=== PATIENT | female | born 1935 | race Caucasian/White ===

== ENCOUNTER 2017-05-08 10:57 | Inpatient (IN) | payer MEDICARE ==
[2017-05-08] MEDS ORDERED: Sodium Chloride 0.9% 10 ML Syringe FLUSH PRN (11:15)
--- NOTE | 2017-05-08 11:53 | EDM.PDOC ---
ED HPI GENERAL MEDICAL PROBLEM - General Chief Complaint: Respiratory Problem Stated Complaint: SOB/LIGHT HEADED Time Seen by Provider: 05/08/17 11:20 Source of Information: Reports: Patient, Family History Limitations: Reports: No Limitations - History of Present Illness INITIAL COMMENTS - FREE TEXT/NARRATIVE: Maisha presents today with complaints of weakness, dizziness and black/tar like stools. She reports change in stools for a few days. She denies nausea, vomiting, fever or chills. - Related Data Allergies Allergy/AdvReac Type Severity Reaction Status Date / Time No Known Allergies Allergy Verified 05/08/17 11:14 Home Meds: Home Meds Acetaminophen with Codeine [Tylenol with Codeine #3 Tablet] 1 each PO BID PRN [History] Aspirin 81 mg PO DAILY 05/08/17 [History] Fenofibrate Nanocrystallized [Fenofibrate] 145 mg PO DAILY 05/08/17 [History] Hydrochlorothiazide [Hydrochlorothiazide] 25 mg PO DAILY 05/08/17 [History] Lisinopril [Lisinopril] 10 mg PO DAILY 05/08/17 [History] Venlafaxine HCl [Venlafaxine ER] 37.5 mg PO DAILY 05/08/17 [History] Past Medical History HEENT History: Reports: Cataract Cardiovascular History: Reports: Hypertension Respiratory History: Reports: COPD Gastrointestinal History: Reports: GERD, GI Bleed, Other (See Below) Other Gastrointestinal History: ulcer 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, Musculoskeletal History: Reports: Arthritis, Osteoarthritis Psychiatric History: Reports: Anxiety, Depression Hematologic History: Reports: Anemia, Blood Transfusion(s), Idiopathic Thrombocytopenia - Past Surgical History HEENT Surgical History: Reports: Cataract Surgery GI Surgical History: Reports: Colonoscopy, EGD Female Surgical History: Reports: Oophorectomy Musculoskeletal Surgical History: Reports: Arthroscopic Knee Social & Family History - Tobacco Use Smoking Status *Q: Current Every Day Smoker Years of Tobacco use: 60 Packs/Tins Daily: 1 - Caffeine Use Caffeine Use: Reports: Coffee - Recreational Drug Use Recreational Drug Use: No ED ROS GENERAL - Review of Systems Review Of Systems: See Below Constitutional: Reports: Weakness. Denies: Fever, Chills, Malaise HEENT: Reports: No Symptoms Respiratory: Reports: Shortness of Breath, Cough. Denies: Wheezing, Pleuritic Chest Pain, Sputum, Hemoptysis Cardiovascular: Reports: Dyspnea on Exertion, Lightheadedness. Denies: Chest Pain, Blood Pressure Problem, Edema, Palpitations, PND, Syncope Endocrine: Reports: No Symptoms GI/Abdominal: Reports: Black Stool. Denies: Abdominal Pain, Diarrhea, Nausea, Vomiting : Denies: Flank Pain, Frequency, Hematuria, Pain, Urgency Musculoskeletal: Reports: No Symptoms Skin: Reports: No Symptoms Neurological: Reports: No Symptoms Psychiatric: Reports: No Symptoms Hematologic/Lymphatic: Reports: No Symptoms Immunologic: Reports: No Symptoms ED EXAM, GENERAL - Physical Exam Exam: See Below Free Text/Narrative:: Maisha is an alert, oriented and pleasant 81 year old female. She presents with complaints of weakness and black stools. She does state that she takes iron but her stools have been black for a few days and now she is weak and short of breath at times. She does use 1ppd cigarettes. Exam Limited By: No Limitations General Appearance: Alert, WD/WN, Mild Distress Eye Exam: Bilateral Eye: EOMI, Normal Inspection, PERRL Ears: Normal External Exam, Normal Canal, Hearing Grossly Normal, Normal TMs Ear Exam: Bilateral Ear: Auricle Normal, Canal Normal, TM normal Nose: Normal Inspection, Normal Mucosa, No Blood Throat/Mouth: Normal Inspection, Normal Lips, Normal Oropharynx, Normal Voice, No Airway Compromise Head: Atraumatic, Normocephalic Neck: Normal Inspection, Supple, Non-Tender, Full Range of Motion Respiratory/Chest: No Respiratory Distress, Chest Non-Tender, Decreased Breath Sounds, Rhonchi. No: Respiratory Distress, Wheezing Cardiovascular: Normal Peripheral Pulses, Regular Rate, Rhythm, No Edema, No Murmur Peripheral Pulses: 2+: Radial (L), Radial (R), Dorsalis Pedis (L), Dorsalis Pedis (R) GI/Abdominal: Normal Bowel Sounds, Soft, Non-Tender, No Distention, No Mass, Rigid, Rebound Rectal (Female) Exam: Normal Exam, Normal Rectal Tone, Black Stool, Heme + Stool Back Exam: Normal Inspection, Full Range of Motion. No: CVA Tenderness (R), CVA Tenderness (L) Extremities: Normal Inspection, Normal Range of Motion, Non-Tender, No Pedal Edema, Normal Capillary Refill Neurological: Alert, Oriented, CN II-XII Intact, Normal Cognition, No Motor/ Sensory Deficits Psychiatric: Normal Affect, Normal Mood Skin Exam: Warm, Dry, Intact, Normal Color, No Rash Lymphatic: No Adenopathy EKG INTERPRETATION EKG Date: 05/08/17 Time: 11:54 Rhythm: NSR [place]: Normal P-Wave: Present QRS: Normal ST-T: Normal QT: Normal Course - Vital Signs Last Recorded V/S: Last Vital Signs Temp 36.7 C 05/08/17 14:05 Pulse 68 05/08/17 14:05 Resp 17 05/08/17 14:05 BP 111/49 L 05/08/17 14:05 Pulse Ox 93 L 05/08/17 14:05 - Orders/Labs/Meds Orders: Active Orders 24 hr Category Date Time Status Chest 2V [CR] Stat Exams 05/08/17 11:14 Taken PATIENT RETYPE [BBK] Stat Lab 05/08/17 12:01 Results RED BLOOD CELLS LP [BBK] Stat Lab 05/08/17 12:01 Results TYPE AND SCREEN [BBK] Stat Lab 05/08/17 12:01 Results Sodium Chloride 0.9% [Saline Flush] Med 05/08/17 11:15 Active 10 ml FLUSH ASDIRECTED PRN Saline Lock Insert [OM.PC] Routine Oth 05/08/17 11:15 Ordered EKG 12 Lead [EK] Routine Ther 05/08/17 11:14 Stop Req Medication Orders Acetaminophen (Tylenol) 650 mg PO Q4H PRN PRN Reason: Pain (Mild 1-3)/fever Acetaminophen/Codeine Phosphate (Tylenol With Codeine No.3 300mg/30mg) 1 tab PO Q4H PRN PRN Reason: Pain Sodium Chloride (Normal Saline) 1,000 mls @ 125 mls/hr IV ASDIRECTED GORAN Morphine Sulfate (Morphine) 2 mg IVPUSH Q2H PRN PRN Reason: Pain (severe 7-10) Ondansetron HCl (Zofran Odt) 4 mg PO Q6H PRN PRN Reason: Nausea able to take PO Pantoprazole Sodium (Protonix Iv) 40 mg IV Q12H GORAN Sodium Chloride (Saline Flush) 10 ml FLUSH ASDIRECTED PRN PRN Reason: Keep Vein Open Last Admin: 05/08/17 11:43 Dose: 10 ml Venlafaxine HCl (Effexor Xr) 37.5 mg PO DAILY GORAN Labs: Laboratory Tests 05/08/17 05/08/17 05/08/17 Range/Units 11:25 11:25 11:25 WBC 8.2 (4.5-11.0) K/uL RBC 2.73 L (3.30-5.50) M/uL Hgb 8.4 L (12.0-15.0) g/dL Hct 25.6 L (36.0-48.0) % MCV 94 (80-98) fL MCH 31 (27-31) pg MCHC 33 (32-36) % Plt Count 294 (150-400) K/uL Neut % (Auto) 80 H (36-66) % Lymph % (Auto) 12 L (24-44) % [place] % (Auto) 8 H (2-6) % Eos % (Auto) 0 L (2-4) % Baso % (Auto) 0 (0-1) % PT 10.6 (9.5-12.0) sec INR 0.99 (0.80-1.20) APTT 22.6 L (27.0-36.0) sec Sodium 133 L (140-148) mmol/L Potassium 4.0 (3.6-5.2) mmol/L Chloride 100 (100-108) mmol/L Carbon Dioxide 24 (21-32) mmol/L Anion Gap 13.0 (5.0-14.0) mmol/L BUN 39 H (7-18) mg/dL Creatinine 1.6 H (0.6-1.0) mg/dL Est Cr Clr Drug Dosing 23.09 mL/min Estimated GFR (MDRD) 31 L (>60) Glucose 104 (74-106) mg/dL Calcium 10.1 (8.5-10.1) mg/dL Total Bilirubin 0.3 (0.2-1.0) mg/dL AST 25 (15-37) U/L ALT 23 (12-78) U/L Alkaline Phosphatase 59 (46-116) U/L Total Protein 6.5 (6.4-8.2) g/dL Albumin 3.5 (3.4-5.0) g/dL Globulin 3.0 (2.3-3.5) g/dL Albumin/Globulin Ratio 1.2 (1.2-2.2) Blood Type Gel Antibody Screen Crossmatch 05/08/17 Range/Units 12:01 WBC (4.5-11.0) K/uL RBC (3.30-5.50) M/uL Hgb (12.0-15.0) g/dL Hct (36.0-48.0) % MCV (80-98) fL MCH (27-31) pg MCHC (32-36) % Plt Count (150-400) K/uL Neut % (Auto) (36-66) % Lymph % (Auto) (24-44) % [place] % (Auto) (2-6) % Eos % (Auto) (2-4) % Baso % (Auto) (0-1) % PT (9.5-12.0) sec INR (0.80-1.20) APTT (27.0-36.0) sec Sodium (140-148) mmol/L Potassium (3.6-5.2) mmol/L Chloride (100-108) mmol/L Carbon Dioxide (21-32) mmol/L Anion Gap (5.0-14.0) mmol/L BUN (7-18) mg/dL Creatinine (0.6-1.0) mg/dL Est Cr Clr Drug Dosing mL/min Estimated GFR (MDRD) (>60) Glucose (74-106) mg/dL Calcium (8.5-10.1) mg/dL Total Bilirubin (0.2-1.0) mg/dL AST (15-37) U/L ALT (12-78) U/L Alkaline Phosphatase (46-116) U/L Total Protein (6.4-8.2) g/dL Albumin (3.4-5.0) g/dL Globulin (2.3-3.5) g/dL Albumin/Globulin Ratio (1.2-2.2) Blood Type B POSITIVE Gel Antibody Screen Negative Crossmatch See Detail Lab work reviewed, Occult stool positive. 2nd IV inserted, fluid bolus administered. Meds: Medications Generic Name Dose Route Start Last Admin Trade Name Freq PRN Reason Stop Dose Admin Acetaminophen 650 mg 05/08/17 14:05 Tylenol PO Q4H PRN Pain (Mild 1-3)/fever Acetaminophen/Codeine Phosphate 1 tab 05/08/17 14:05 Tylenol With Codeine No.3 300mg/30mg PO Q4H PRN Pain Sodium Chloride 1,000 mls @ 125 mls/hr 05/08/17 14:05 Normal Saline IV ASDIRECTED GORAN Morphine Sulfate 2 mg 05/08/17 14:05 Morphine IVPUSH Q2H PRN Pain (severe 7-10) Ondansetron HCl 4 mg 05/08/17 14:05 Zofran Odt PO Q6H PRN Nausea able to take PO Pantoprazole Sodium 40 mg 05/08/17 23:59 Protonix Iv IV Q12H GORAN Sodium Chloride 10 ml 05/08/17 11:15 05/08/17 11:43 Saline Flush FLUSH 10 ml ASDIRECTED PRN Administration Keep Vein Open Venlafaxine HCl 37.5 mg 05/09/17 09:00 Effexor Xr PO DAILY GORAN Discontinued Medications Generic Name Dose Route Start Last Admin Trade Name Freq PRN Reason Stop Dose Admin Sodium Chloride 1,000 mls @ 500 mls/hr 05/08/17 12:00 05/08/17 12:01 Normal Saline IV 500 mls/hr ASDIRECTED GORAN Administration Pantoprazole Sodium 40 mg 05/08/17 12:00 05/08/17 12:12 Protonix Iv IVPUSH 05/08/17 12:01 40 mg ONETIME ONE Administration - Radiology Interpretation Free Text/Narrative:: Chest x-ray wet read, no acute findings noted. Radiologist read pending. - Re-Assessments/Exams Free Text/Narrative Re-Assessment/Exam: 05/08/17 11:55 Patient case discussed with Dr. Christiansen, he will be down to the ER to admit Maisha. Type and screen Cross match 2 Units Maisha and her family in agreement with plan. Departure - Departure Time of Disposition: 15:50 Disposition: Admitted As Inpatient 67 Condition: Fair Clinical Impression: GI bleed, Iron deficiency anemia secondary to blood loss (chronic) - Discharge Information - My Orders Last 24 Hours: My Active Orders 05/08/17 11:14 Chest 2V [CR] Stat EKG 12 Lead [EK] Routine 05/08/17 11:15 Sodium Chloride 0.9% [Saline Flush] 10 ml FLUSH ASDIRECTED PRN Saline Lock Insert [OM.PC] Routine 05/08/17 12:01 PATIENT RETYPE [BBK] Stat RED BLOOD CELLS LP [BBK] Stat TYPE AND SCREEN [BBK] Stat - Assessment/Plan Last 24 Hours: My Active Orders 05/08/17 11:14 Chest 2V [CR] Stat EKG 12 Lead [EK] Routine 05/08/17 11:15 Sodium Chloride 0.9% [Saline Flush] 10 ml FLUSH ASDIRECTED PRN Saline Lock Insert [OM.PC] Routine 05/08/17 12:01 PATIENT RETYPE [BBK] Stat RED BLOOD CELLS LP [BBK] Stat TYPE AND SCREEN [BBK] Stat
[2017-05-08] MEDS ORDERED: Pantoprazole 40 MG Vial IVPUSH ONE (12:00)
[2017-05-08] MEDS ORDERED: Sodium Chloride 0.9% 1,000 ML IV SCH (12:00)
--- NOTE | 2017-05-08 13:49 | PCM.HP ---
H&P History of Present Illness - General Date of Service: 05/08/17 Admit Problem/Dx: Admission Diagnosis/Problem Admission Diagnosis/Problem Gastrointestinal hemorrhage Source of Information: Patient, Family, Provider History Limitations: Reports: No Limitations - History of Present Illness Initial Comments - Free Text/Narative: Maisha presents to the emergency room today with weakness, fatigue, lightheadedness and shortness of breath. She has been feeling fatigued for the past few days and has not had as much energy as usual. She felt weak yesterday but otherwise felt okay. She has noticed that her stools have been darker than usual for the past 2 or 3 days. She does not report any heartburn or epigastric discomfort. She has not had much of an appetite. Today she suddenly became lightheaded and very weak. She had several different episodes where she felt very short of breath, even at rest. She does not report any abdominal pain. She has not had any chest pain. No fevers are reported. Workup in the emergency room revealed a hemoglobin of 8.4 with a baseline of around 12. Hemoccult was positive. She will be admitted for management of presumed upper gastrointestinal hemorrhage. - Related Data Allergies/Adverse Reactions: Allergies Allergy/AdvReac Type Severity Reaction Status Date / Time No Known Allergies Allergy Verified 05/08/17 11:14 Home Medications: Home Meds Acetaminophen with Codeine [Tylenol with Codeine #3 Tablet] 1 each PO BID PRN [History] Aspirin 81 mg PO DAILY 05/08/17 [History] Fenofibrate Nanocrystallized [Fenofibrate] 145 mg PO DAILY 05/08/17 [History] Hydrochlorothiazide [Hydrochlorothiazide] 25 mg PO DAILY 05/08/17 [History] Lisinopril [Lisinopril] 10 mg PO DAILY 05/08/17 [History] Venlafaxine HCl [Venlafaxine ER] 37.5 mg PO DAILY 05/08/17 [History] Past Medical History HEENT History: Reports: Cataract Cardiovascular History: Reports: Hypertension Respiratory History: Reports: COPD Gastrointestinal History: Reports: GERD, GI Bleed, Other (See Below) Other Gastrointestinal History: ulcer 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, Musculoskeletal History: Reports: Arthritis, Osteoarthritis Psychiatric History: Reports: Anxiety, Depression Hematologic History: Reports: Anemia, Blood Transfusion(s), Idiopathic Thrombocytopenia - Past Surgical History HEENT Surgical History: Reports: Cataract Surgery GI Surgical History: Reports: Colonoscopy, EGD Female Surgical History: Reports: Oophorectomy Musculoskeletal Surgical History: Reports: Arthroscopic Knee Social & Family History - Family History GI: Denies: GI bleed - Tobacco Use Smoking Status *Q: Current Every Day Smoker Years of Tobacco use: 60 Packs/Tins Daily: 1 - Caffeine Use Caffeine Use: Reports: Coffee - Alcohol Use Alcohol Use History: No - Recreational Drug Use Recreational Drug Use: No H&P Review of Systems - Review of Systems: Review Of Systems: See Below Free Text/Narrative: A complete 12 point review of systems was obtained. Pertinent positives and negatives are noted in the history of present illness. All other systems were reviewed and were negative except as noted. Exam - Exam Exam: See Below - Vital Signs Vital Signs: Last Vital Signs Temp 37 C 05/08/17 11:04 Pulse 68 05/08/17 13:00 Resp 14 05/08/17 12:00 BP 103/55 L 05/08/17 13:00 Pulse Ox 95 05/08/17 13:00 Weight: 52.163 kg - Exam Quality Assessment: No: Supplemental Oxygen General: Alert, Oriented, Cooperative. No: Mild Distress HEENT: Conjunctiva Clear. No: Mucosa Moist & [place] (dry), Scleral Icterus Neck: Supple, Trachea Midline. No: Lymphadenopathy Lungs: Clear to Auscultation, Normal Respiratory Effort Cardiovascular: Regular Rate, Regular Rhythm. No: Systolic Murmur GI/Abdominal Exam: Normal Bowel Sounds, Soft, No Distention, Tender (mild suprapubic tenderness over full bladder) Extremities: No Pedal Edema. No: Increased Warmth Peripheral Pulses: 2+: Dorsalis Pedis (L), Dorsalis Pedis (R) Skin: Warm, Dry Neuro Extensive - Mental Status: Alert, Oriented x3, Nl Response to Commands Neuro Extensive - Motor, Sensory, Reflexes: CN II-XII Intact. No: Abnormal Reflexes, Abnormal Motor, Tremor Psychiatric: Alert, Normal Affect - Patient Data Lab Results Last 24 hrs: Laboratory Results - last 24 hr 05/08/17 05/08/17 05/08/17 Range/Units 11:25 11:25 11:25 WBC 8.2 (4.5-11.0) K/uL RBC 2.73 L (3.30-5.50) M/uL Hgb 8.4 L (12.0-15.0) g/dL Hct 25.6 L (36.0-48.0) % MCV 94 (80-98) fL MCH 31 (27-31) pg MCHC 33 (32-36) % Plt Count 294 (150-400) K/uL Neut % (Auto) 80 H (36-66) % Lymph % (Auto) 12 L (24-44) % [place] % (Auto) 8 H (2-6) % Eos % (Auto) 0 L (2-4) % Baso % (Auto) 0 (0-1) % PT 10.6 (9.5-12.0) sec INR 0.99 (0.80-1.20) APTT 22.6 L (27.0-36.0) sec Sodium 133 L (140-148) mmol/L Potassium 4.0 (3.6-5.2) mmol/L Chloride 100 (100-108) mmol/L Carbon Dioxide 24 (21-32) mmol/L Anion Gap 13.0 (5.0-14.0) mmol/L BUN 39 H (7-18) mg/dL Creatinine 1.6 H (0.6-1.0) mg/dL Est Cr Clr Drug Dosing 23.09 mL/min Estimated GFR (MDRD) 31 L (>60) Glucose 104 (74-106) mg/dL Calcium 10.1 (8.5-10.1) mg/dL Total Bilirubin 0.3 (0.2-1.0) mg/dL AST 25 (15-37) U/L ALT 23 (12-78) U/L Alkaline Phosphatase 59 (46-116) U/L Total Protein 6.5 (6.4-8.2) g/dL Albumin 3.5 (3.4-5.0) g/dL Globulin 3.0 (2.3-3.5) g/dL Albumin/Globulin Ratio 1.2 (1.2-2.2) Blood Type Gel Antibody Screen Crossmatch 05/08/17 Range/Units 12:01 WBC (4.5-11.0) K/uL RBC (3.30-5.50) M/uL Hgb (12.0-15.0) g/dL Hct (36.0-48.0) % MCV (80-98) fL MCH (27-31) pg MCHC (32-36) % Plt Count (150-400) K/uL Neut % (Auto) (36-66) % Lymph % (Auto) (24-44) % [place] % (Auto) (2-6) % Eos % (Auto) (2-4) % Baso % (Auto) (0-1) % PT (9.5-12.0) sec INR (0.80-1.20) APTT (27.0-36.0) sec Sodium (140-148) mmol/L Potassium (3.6-5.2) mmol/L Chloride (100-108) mmol/L Carbon Dioxide (21-32) mmol/L Anion Gap (5.0-14.0) mmol/L BUN (7-18) mg/dL Creatinine (0.6-1.0) mg/dL Est Cr Clr Drug Dosing mL/min Estimated GFR (MDRD) (>60) Glucose (74-106) mg/dL Calcium (8.5-10.1) mg/dL Total Bilirubin (0.2-1.0) mg/dL AST (15-37) U/L ALT (12-78) U/L Alkaline Phosphatase (46-116) U/L Total Protein (6.4-8.2) g/dL Albumin (3.4-5.0) g/dL Globulin (2.3-3.5) g/dL Albumin/Globulin Ratio (1.2-2.2) Blood Type B POSITIVE Gel Antibody Screen Negative Crossmatch See Detail Result Diagrams: 05/08/17 11:25 05/08/17 11:25 [place] Results Last 24 hrs: Microbiology 05/08/17 11:25 Stool Occult Blood (BRANDON) - Final Stool / Feces Imaging Impressions Last 24 hrs: CXR - images personally reviewed - there is hyperinflation but no evidence for mass, infiltrate, effusion or congestive heart failure. EKG INTERPRETATION EKG Date: 05/08/17 Rhythm: NSR Rate (Beats/Min): 72 [place]: Normal P-Wave: Present QRS: Normal ST-T: Normal QT: Normal EKG Interpretation Comments: Image personally reviewed *Q Meaningful Use (ADM) - VTE *Q VTE Criteria *Q: VTE Pharmacological Contraindications *Q: Active Hemorrhage - VTE Risk Assess *Q Each Risk Factor Represents 1 Point: Abnormal Pulmonary Function (COPD) Total Score 1 Point Risk Factors: 1 Each Risk Factor Represents 2 Points: None Total Score 2 Point Risk Factors: 0 Each Risk Factor Represents 3 Points: Age 75 Years or Greater Total Score 3 Point Risk Factors: 3 Each Risk Factor Represents 5 Points: None Total Score 5 Point Risk Factors: 0 Venous Thromboembolism Risk Factor Score *Q: 4 - Stroke *Q Stroke Criteria *Q: - AMI *Q AMI Criteria *Q: - Problem List (1) Acute upper gastrointestinal hemorrhage SNOMED Code(s): 65135644 ICD Code: K92.2 - GASTROINTESTINAL HEMORRHAGE, UNSPECIFIED Status: Acute Current Visit: Yes (2) Acute blood loss anemia SNOMED Code(s): 226668091 ICD Code: D62 - ACUTE POSTHEMORRHAGIC ANEMIA Status: Acute Current Visit : Yes (3) Tobacco dependence SNOMED Code(s): 02822280 ICD Code: F17.200 - NICOTINE DEPENDENCE, UNSPECIFIED, UNCOMPLICATED Status : Acute Current Visit: Yes Problem List Initiated/Reviewed/Updated: Yes Orders Last 24hrs: Active Orders 24 hr Category Date Time Status Patient Status Manage Transfer [TRANSFER] Routine ADT 05/08/17 13:33 Ordered EKG Documentation Completion [RC] ASDIRECTED Care 05/08/17 11:14 Active Chest 2V [CR] Stat Exams 05/08/17 11:14 Taken PATIENT RETYPE [BBK] Stat Lab 05/08/17 12:01 Results RED BLOOD CELLS LP [BBK] Stat Lab 05/08/17 12:01 Results TYPE AND SCREEN [BBK] Stat Lab 05/08/17 12:01 Results Sodium Chloride 0.9% [Normal Saline] 1,000 ml Med 05/08/17 12:00 Active IV ASDIRECTED Sodium Chloride 0.9% [Saline Flush] Med 05/08/17 11:15 Active 10 ml FLUSH ASDIRECTED PRN Saline Lock Insert [OM.PC] Routine Oth 05/08/17 11:15 Ordered Resuscitation Status Routine Resus Stat 05/08/17 13:34 Ordered EKG 12 Lead [EK] Routine Ther 05/08/17 11:14 Ordered Medication Orders Sodium Chloride (Normal Saline) 1,000 mls @ 500 mls/hr IV ASDIRECTED GORAN Last Admin: 05/08/17 12:01 Dose: 500 mls/hr Sodium Chloride (Saline Flush) 10 ml FLUSH ASDIRECTED PRN PRN Reason: Keep Vein Open Last Admin: 05/08/17 11:43 Dose: 10 ml Assessment/Plan Comment:: ASSESSMENT AND PLAN - Acute upper gastrointestinal hemorrhage with acute blood loss anemia - history of what no ulceration and hemorrhage requiring blood transfusion. With recent melena upper GI source is suspected. She has lost a significant quantity of blood and is symptomatic with her anemia. She is feeling better with some hydration and she has received an IV dose of pantoprazole. -Admit to the intensive care unit -Pantoprazole every 12 hours -IV fluids -Repeat hemoglobin at 1700, transfuse if less than 8 or if she is hypotensive -She has been typed and crossed for 2 units -EGD in the morning with Dr. Mcnair Essential hypertension - blood pressure on the low side and usual medications will be held. Tobacco dependence - she is a one pack per day smoker. We did discuss the potential role for nicotine in the formation of her ulcers. -Encourage cessation Maintenance issues - - DVT prophylaxis - mechanical - GI prophylaxis - PPI - Nutrition - clear liquids today, nothing by mouth after midnight - Franco catheter - not indicated CODE STATUS - DNR/DNI Admission justification - This patient will be admitted for inpatient services and is medically appropriate meeting medical necessity for inpatient admission as outlined in my documentation. I reasonably expect the patient will require inpatient services that span a period time over 2 midnights. I reasonably expect this patient to be discharged or transferred within 96 hours [facility]. Disposition - anticipate discharge home after the hospital stay Primary care physician - Dr Laura Stout-Lyndsay Christiansen M.D.
[2017-05-08] MEDS ORDERED: Acetaminophen/Codeine 300-30 MG Tab PO PRN (14:05)
[2017-05-08] MEDS ORDERED: Ondansetron 4 MG Tab.DIS PO PRN (14:05)
[2017-05-08] MEDS ORDERED: Morphine 2 MG/ML Syringe IVPUSH PRN (14:05)
[2017-05-08] MEDS ORDERED: Acetaminophen 325 MG Tab PO PRN (14:05)
[2017-05-09] MEDS: Pantoprazole 40 MG Vial IV SCH ×2 (00:03→11:30)
[2017-05-09] MEDS: Sodium Chloride 0.9% 1,000 ML IV SCH ×2 (01:02→08:35)
[2017-05-09] MEDS: Venlafaxine 37.5 MG Cap.ER PO SCH (09:55)
[2017-05-09] MEDS ORDERED: Sodium Chloride 0.9% 1,000 ML IV SCH (11:45)
--- NOTE | 2017-05-09 14:49 | PCM.PN ---
- General Info Date of Service: 05/09/17 Functional Status: Reports: Pain Controlled - Review of Systems General: Reports: Weakness Pulmonary: Denies: Shortness of Breath Gastrointestinal: Reports: Melena Systems Review Comment:: No acute events overnight. Blood pressure has been on the low side of normal but stable. Tolerated blood transfusion well yesterday after hemoglobin dropped below 7. She has had a small quantity of melena this morning but none yesterday. No complaints of epigastric pain or nausea. No recurrence of the episodes of shortness of breath she was experiencing yesterday. - Patient Data Vitals - Most Recent: Last Vital Signs Temp 36.4 C 05/09/17 09:59 Pulse 69 05/09/17 13:51 Resp 24 H 05/09/17 13:51 BP 157/33 H 05/09/17 13:51 Pulse Ox 94 L 05/09/17 13:51 Weight - Most Recent: 52.163 kg I&O - Last 24 Hours: Intake & Output 05/08/17 05/09/17 05/09/17 22:59 06:59 14:59 Intake Total 1270 1188 810 Output Total 1600 1100 1000 Balance -330 88 -190 Lab Results Last 24 Hours: Laboratory Results - last 24 hr 05/08/17 05/09/17 05/09/17 Range/Units 16:58 05:11 05:11 WBC 4.2 L (4.5-11.0) K/uL RBC 3.29 L (3.30-5.50) M/uL Hgb 6.9 L* 9.9 L D (12.0-15.0) g/dL Hct 30.0 L (36.0-48.0) % MCV 91 (80-98) fL MCH 30 (27-31) pg MCHC 33 (32-36) % Plt Count 227 (150-400) K/uL Sodium 141 (140-148) mmol/L Potassium 3.8 (3.6-5.2) mmol/L Chloride 112 H (100-108) mmol/L Carbon Dioxide 25 (21-32) mmol/L Anion Gap 7.8 (5.0-14.0) mmol/L BUN 20 H (7-18) mg/dL Creatinine 1.0 (0.6-1.0) mg/dL Est Cr Clr Drug Dosing 36.95 mL/min Estimated GFR (MDRD) 53 L (>60) Glucose 90 (74-106) mg/dL Calcium 9.3 (8.5-10.1) mg/dL Med Orders - Current: Current Medications Acetaminophen (Tylenol) 650 mg PO Q4H PRN PRN Reason: Pain (Mild 1-3)/fever Acetaminophen/Codeine Phosphate (Tylenol With Codeine No.3 300mg/30mg) 1 tab PO Q4H PRN PRN Reason: Pain Morphine Sulfate (Morphine) 2 mg IVPUSH Q2H PRN PRN Reason: Pain (severe 7-10) Ondansetron HCl (Zofran Odt) 4 mg PO Q6H PRN PRN Reason: Nausea able to take PO Sodium Chloride (Saline Flush) 10 ml FLUSH ASDIRECTED PRN PRN Reason: Keep Vein Open Last Admin: 05/08/17 11:43 Dose: 10 ml Venlafaxine HCl (Effexor Xr) 37.5 mg PO DAILY [facility] Last Admin: 05/09/17 09:55 Dose: 37.5 mg Discontinued Medications Sodium Chloride (Normal Saline) 1,000 mls @ 500 mls/hr IV ASDIRECTED [facility] Last Admin: 05/08/17 12:01 Dose: 500 mls/hr Sodium Chloride (Normal Saline) 1,000 mls @ 125 mls/hr IV ASDIRECTED [facility] Last Admin: 05/09/17 08:35 Dose: 125 mls/hr Sodium Chloride (Normal Saline) 1,000 mls @ 50 mls/hr IV ASDIRECTED [facility] Pantoprazole Sodium (Protonix Iv) 40 mg IVPUSH ONETIME ONE Stop: 05/08/17 12:01 Last Admin: 05/08/17 12:12 Dose: 40 mg Pantoprazole Sodium (Protonix Iv) 40 mg IV Q12H [facility] Last Admin: 05/09/17 11:30 Dose: 40 mg - Exam Quality Assessment: No: Supplemental Oxygen General: Alert, Oriented, Cooperative, No Acute Distress Neck: Supple Lungs: Normal Respiratory Effort Cardiovascular: Regular Rate, Regular Rhythm GI/Abdominal Exam: Soft, No Distention Extremities: No Pedal Edema Psy/Mental Status: Alert, Normal Affect - Problem List & Annotations (1) Acute upper gastrointestinal hemorrhage SNOMED Code(s): 69473573 Code(s): K92.2 - GASTROINTESTINAL HEMORRHAGE, UNSPECIFIED Status: Acute Current Visit: Yes (2) Acute blood loss anemia SNOMED Code(s): 387817721 Code(s): D62 - ACUTE POSTHEMORRHAGIC ANEMIA Status: Acute Current Visit: Yes (3) Tobacco dependence SNOMED Code(s): 88627897 Code(s): F17.200 - NICOTINE DEPENDENCE, UNSPECIFIED, UNCOMPLICATED Status: Acute Current Visit: Yes - Problem List Review Problem List Initiated/Reviewed/Updated: Yes - My Orders Last 24 Hours: My Active Orders 05/08/17 14:05 Patient Status [ADT] Routine Cardiac Monitoring [RC] Q6H Intake and Output [RC] QSHIFT Notify Provider Consults [RC] ASDIRECTED Notify Provider Vital Signs [RC] ASDIRECTED Pulse Oximetry [RC] CONTINUOUS VTE/DVT Education [RC] Per Unit Routine Vital Signs [RC] Q2HR Consult to Physician [CONS] Routine Acetaminophen [Tylenol] 650 mg PO Q4H PRN Morphine 2 mg IVPUSH Q2H PRN Ondansetron [Zofran ODT] 4 mg PO Q6H PRN Sequential Compression Device [OM.PC] Per Unit Routine VTE Pharmacological Contraindications [AST] Per Unit Routine 05/08/17 17:09 Transfuse Red Blood Cells [COMM] Routine 05/09/17 14:46 Up With Assistance [RC] ASDIRECTED Convert IV to Saline Lock [OM.PC] Routine 05/09/17 16:30 Pantoprazole [ProTONIX] 40 mg PO BIDAC 05/09/17 18:00 HGB [HEMOGLOBIN] [HEME] Routine 05/09/17 Lunch Regular Diet [DIET] 05/10/17 05:00 BASIC METABOLIC PANEL,BMP [CHEM] Timed CBC W/O DIFF,HEMOGRAM [HEME] Timed (1) - Plan Plan:: ASSESSMENT AND PLAN - Acute upper gastrointestinal hemorrhage with acute blood loss anemia - EGD did not reveal obvious pathology. Clinically stable and seems to be getting better. Symptoms have resolved. She has had previous capsule endoscopy and colonoscopy. -Saline lock IV -Twice daily pantoprazole -Repeat hemoglobin at 1800, transfuse if less than 8 or if she is hypotensive -She has been typed and crossed for 2 units Essential hypertension - blood pressure on the low side and usual medications will be held. Tobacco dependence - she is a one pack per day smoker. We did discuss the potential role for nicotine in the formation of her ulcers. -Encourage cessation Maintenance issues - - DVT prophylaxis - mechanical - GI prophylaxis - PPI - Nutrition - transition to regular diet Disposition - anticipate discharge home after the hospital stay Primary care physician - Dr Laura Stout-Lyndsay Christiansen M.D.
[2017-05-09] MEDS: Pantoprazole 40 MG Tab.CR PO SCH (16:01)
[2017-05-10] MEDS: Pantoprazole 40 MG Tab.CR PO SCH (08:37)
[2017-05-10] MEDS: Venlafaxine 37.5 MG Cap.ER PO SCH (08:37)
--- NOTE | 2017-05-10 08:58 | OR ---
DATE OF PROCEDURE: 05/09/2017 PROCEDURE: Esophagogastroduodenoscopy. FINDINGS: 1. No evidence of old or new blood. 2. 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 RISKS: Risks, benefits, alternatives, limitations including, but not limited to infection, bleeding, and perforation were explained to the patient, and they wished to proceed. PROCEDURE IN DETAIL: The patient was placed in left lateral decubitus position. The EGD scope was introduced and advanced atraumatically into the duodenum. No evidence of old or new blood. The duodenum was inspected multiple times due to the history of duodenal ulcer; however, there was none. There was no evidence of old or new bleeding. No hiatal hernia. No gastritis. At the GE junction, there was inflammation consistent with reflux or Rehman's esophagus. This was biopsied one time, which was a large biopsy and due to the patient's fragility, no further biopsies were performed. Esophagus was normal. The patient tolerated the procedure well. Salty Mcnair MD /[id number]
--- NOTE | 2017-05-10 09:39 | PCM.DCSUM1 ---
Discharge Summary - Hospital Course Brief History: Ms. Elizabeth is an 81-year-old woman who was admitted through the emergency department with weakness, shortness of breath, and lightheadedness secondary to anemia related to an acute upper GI bleed. 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 Elizabeth is an 81-year-old woman who developed symptoms of weakness, lightheadedness, and shortness of breath prior to admission. The symptoms were similar to previous episodes of upper GI bleed. She's had previous evaluation including EGD, colonoscopy, and capsule endoscopy of the small intestine. No specific etiology was identified with her previous bleeding. On evaluation in emergency department was noted to be anemic and give a history of melenic- appearing stools. She was admitted to the intensive care unit and given IV fluids for hydration. She was also started on IV Protonix 40 mg twice daily. Serial hemoglobin levels were obtained in the following morning her hemoglobin dropped below 7 so she was transfused 2 units of red blood cells. After transfusion hemoglobin remains stable and there was no further evidence of active bleeding. Surgical consult was obtained with Dr. Mcnair and an EGD was performed, this showed no obvious source of recent bleeding. She was feeling well the following morning and had tolerated a regular diet with again no evidence of further GI blood loss. She will be discharged home on Protonix 40 mg twice daily for 2 weeks and then once daily thereafter. Follow-up appointment will be scheduled with her primary care provider within one week, hemoglobin should be obtained at that time. She will be on a soft diet and activity will be as tolerated. She has been instructed to return immediately to the emergency department if she notes recurrence of symptoms or any further melenic stools. - Patient Instructions Diet: No Alcoholic Beverages, GI Soft/Low Residue/Low Fiber Activity: As Tolerated Other/Special Instructions: Please schedule follow-up appointment with primary care provider within one week. Hemoglobin level should be obtained at the time of follow-up appointment. - Discharge Plan Prescriptions/Med Rec: Ferrous Sulfate 325 mg PO BID #60 tablet Pantoprazole [ProTONIX] 40 mg PO BIDAC #30 tab.cr Home Medications: Home Meds Acetaminophen with Codeine [Tylenol with Codeine #3 Tablet] 1 each PO BID PRN [History] Aspirin 81 mg PO DAILY 05/08/17 [History] Fenofibrate Nanocrystallized [Fenofibrate] 145 mg PO DAILY 05/08/17 [History] Hydrochlorothiazide 25 mg PO DAILY 05/08/17 [History] Lisinopril 10 mg PO DAILY 05/08/17 [History] Venlafaxine HCl [Venlafaxine ER] 37.5 mg PO DAILY 05/08/17 [History] Ferrous Sulfate 325 mg PO BID #60 tablet 05/10/17 [Rx] Pantoprazole [ProTONIX] 40 mg PO BIDAC #30 tab.cr 05/10/17 [Rx] Forms: ED Department Discharge Referrals: Laura Leger NP [Primary Care Provider] - - Patient Data Vitals - Most Recent: Last Vital Signs Temp 96.3 F 05/10/17 08:00 Pulse 65 05/09/17 18:00 Resp 12 05/10/17 08:00 BP 130/55 L 05/10/17 08:00 Pulse Ox 96 05/10/17 08:00 Weight - Most Recent: 120 lb 12.801 oz I&O - Last 24 hours: Intake & Output 05/09/17 05/10/17 05/10/17 22:59 06:59 14:59 Intake Total 975 Output Total 200 550 Balance 775 -550 Lab Results - Last 24 hrs: Laboratory Results - last 24 hr 05/09/17 05/10/17 05/10/17 Range/Units 17:53 04:52 04:52 WBC 5.1 (4.5-11.0) K/uL RBC 3.08 L (3.30-5.50) M/uL Hgb 9.7 L 9.3 L (12.0-15.0) g/dL Hct 28.4 L (36.0-48.0) % MCV 92 (80-98) fL MCH 30 (27-31) pg MCHC 33 (32-36) % Plt Count 227 (150-400) K/uL Sodium 144 (140-148) mmol/L Potassium 3.6 (3.6-5.2) mmol/L Chloride 110 H (100-108) mmol/L Carbon Dioxide 25 (21-32) mmol/L Anion Gap 12.6 (5.0-14.0) mmol/L BUN 19 H (7-18) mg/dL Creatinine 0.9 (0.6-1.0) mg/dL Est Cr Clr Drug Dosing 41.05 mL/min Estimated GFR (MDRD) > 60 (>60) Glucose 97 (74-106) mg/dL Calcium 9.1 (8.5-10.1) mg/dL Med Orders - Current: Current Medications Acetaminophen (Tylenol) 650 mg PO Q4H PRN PRN Reason: Pain (Mild 1-3)/fever Acetaminophen/Codeine Phosphate (Tylenol With Codeine No.3 300mg/30mg) 1 tab PO Q4H PRN PRN Reason: Pain Morphine Sulfate (Morphine) 2 mg IVPUSH Q2H PRN PRN Reason: Pain (severe 7-10) Ondansetron HCl (Zofran Odt) 4 mg PO Q6H PRN PRN Reason: Nausea able to take PO Pantoprazole Sodium (Protonix) 40 mg PO BIDAC [facility] Last Admin: 05/10/17 08:37 Dose: 40 mg Sodium Chloride (Saline Flush) 10 ml FLUSH ASDIRECTED PRN PRN Reason: Keep Vein Open Last Admin: 05/08/17 11:43 Dose: 10 ml Venlafaxine HCl (Effexor Xr) 37.5 mg PO DAILY [facility] Last Admin: 05/10/17 08:37 Dose: 37.5 mg Discontinued Medications Sodium Chloride (Normal Saline) 1,000 mls @ 500 mls/hr IV ASDIRECTED [facility] Last Admin: 05/08/17 12:01 Dose: 500 mls/hr Sodium Chloride (Normal Saline) 1,000 mls @ 125 mls/hr IV ASDIRECTED [facility] Last Admin: 05/09/17 08:35 Dose: 125 mls/hr Sodium Chloride (Normal Saline) 1,000 mls @ 50 mls/hr IV ASDIRECTED [facility] Pantoprazole Sodium (Protonix Iv) 40 mg IVPUSH ONETIME ONE Stop: 05/08/17 12:01 Last Admin: 05/08/17 12:12 Dose: 40 mg Pantoprazole Sodium (Protonix Iv) 40 mg IV Q12H [facility] Last Admin: 05/09/17 11:30 Dose: 40 mg *Q Meaningful Use (DIS) - VTE *Q VTE Criteria *Q: VTE Pharmacological Contraindications *Q: Active Hemorrhage - Stroke *Q Stroke Criteria *Q: - AMI *Q AMI Criteria *Q:
--- NOTE | 2017-05-10 09:47 | CR ---
Chest 2V INDICATION: SOB FINDINGS: Mild hyperinflation versus deep inspiration. Aortic calcification. Chest otherwise negative .
== END 2017-05-10 10:44 | disposition home or self-care (01) | DRG 378 ==
LOC: JP.ED 10:57 → JP.ICU 13:33
PROVIDERS: ADMIT Internal Medicine; ATTEND Hospitalist
PROC: 30233N1 Transfusion of Nonautologous Red Blood Cells into Peripheral Vein, Percutaneous Approach (ICD-10-PCS; principal; 2017-05-08)
PROC: 0DJ08ZZ Inspection of Upper Intestinal Tract, Via Natural or Artificial Opening Endoscopic (ICD-10-PCS; 2017-05-09)
DX: K92.2 Gastrointestinal hemorrhage, unspecified (principal); D62 Acute posthemorrhagic anemia; D69.3 Immune thrombocytopenic purpura; D50.0 Iron deficiency anemia secondary to blood loss (chronic); F17.210 Nicotine dependence, cigarettes, uncomplicated; I10 Essential (primary) hypertension; Z66 Do not resuscitate; K92.1 Melena; Z87.11 Personal history of peptic ulcer disease; F41.9 Anxiety disorder, unspecified; F32.9 Major depressive disorder, single episode, unspecified; K21.9 Gastro-esophageal reflux disease without esophagitis; M19.90 Unspecified osteoarthritis, unspecified site; J44.9 Chronic obstructive pulmonary disease, unspecified; Z79.82 Long term (current) use of aspirin
CPT/HCPCS: 36415; 71020 ×2; 80053; 82272; 85025; 85610; 85730; 86850; 86900; 86901; 86920 ×2; 86922 ×2; 93005; 99285; C9113; J7040; J7050; 36430; 80048; 85018; 85027; 88305; 93010; A9270-GY; P9016